=== PATIENT | female | born 1980 | race Caucasian/White ===

== ENCOUNTER 2016-09-09 14:55 | Emergency (ER) | payer OTHER ==
[~2016-09-09] VITALS: Ht 172.7 cm; Wt 124.3 kg
[~2016-09-09 14:55] MED LIST: BACTRIM,SEPT1 TABLET PO; CHANTIX1 MG PO; CIPRO500 MG PO; CLOTRIMAZOLE-BE15 GM TP; CYANOCOBAL1000 MCG/2 IM; DAILY VALUE1 EACH PO; DOCUSATE SODIU100 MG PO; FERROUS SULFAT324 M1 PO; KEFLEX500 MG PO; KLONOPIN1 MG PO; LOSARTAN POTAS100 MG PO; MS CONTIN,ORAMO60 MG PO; OXAYDO5 MG PO; OXYCODONE HCL15 MG PO; ROZEREM8 MG PO; SENNA LAX8.6 MG PO; SUMATRIPTAN SU100 MG PO; TAMSULOSIN HCL0.4 MG PO; VENLAFAXINE HC150 M1 PO
[2016-09-09 14:57] VITALS: BP 123/58
[2016-09-09 15:24] LABS: ADD MIUA? YES; BILIRUBIN NEGATIVE; BLOOD MODERATE; COLOR YELLOW ((YELLOW)); GLUCOSE (STRIP) NEGATIVE; KETONES 5; LEUKOCYTES SMALL; NITRITE NEGATIVE; PROTEIN (STRIP) 100; SPECIFIC GRAVITY 1.025 (1.000-1.030)
[2016-09-09 15:56] LABS: EPITHELIAL CELLS 2+ /HPF; MUCUS RARE /LPF; RED BLOOD CELLS 20-30 /HPF (0-5)
[2016-09-09 15:57] LABS: BACTERIA RARE /HPF; CALCIUM OXALATE CRYSTALS 3+ /HPF; CASTS NONE SEEN /LPF; CRYSTALS PRESENT; UCUL ADDED? NO
[2016-09-09 15:57] LABS: EOSINOPHIL (%) 0.3 % (0-5); HEMATOCRIT 49.5 % (36.0-46.0); IMMATURE GRANULOCYTE (%) 0.5 % (0.0-0.7); IMMATURE GRANULOCYTE COUNT 0.1 K/uL; LYMPHOCYTE COUNT 1.1 K/uL (1.0-2.8); MCH 27.9 PG (29.0-34.0); MCHC 31.5 G/DL (30.0-36.0); MCV 88.4 FL (83-99); MEAN PLAT.VOLUME 10.3 uM^3 (9.5-12.4); MONOCYTE (%) 4.8 % (3-12); MONOCYTE COUNT 0.6 K/uL (0-0.8); PLATELET COUNT 176 K/uL (156-360); RBC DIS.WIDTH-CV 15.4 % (11.8-14.6); RBC DIS.WIDTH-SD 49.5 % (39-53); WHITE BLOOD COUNT 11.8 K/uL (4.1-10.2)
[2016-09-09 16:16] LABS: CHLORIDE 104 mEq/L (99-109); POTASSIUM 4.3 mEq/L (3.7-5.4); SODIUM 142 mEq/L (136-147)
[2016-09-09 16:18] LABS: GLUCOSE 115 mg/dL (70-99)
[2016-09-09 16:19] LABS: ANION GAP 10 MEQ/L (2-14)
[2016-09-09 16:20] LABS: TOTAL BILIRUBIN 0.4 mg/dL (0.0-1.0)
[2016-09-09 16:21] LABS: ALKALINE PHOSPHATASE 104 IU/L (3-129); GFR ESTIMATE (CALCULATED) > 59 mL/min/
[2016-09-09 16:23] LABS: UREA NITROGEN (BUN) 13 mg/dL (9-23)
[2016-09-09 16:25] LABS: LIPASE 16 U/L (1.0-51.0)
== END 2016-09-09 17:20 | disposition left against medical advice (07) ==
LOC: EME → EDSEX 14:55 → RME 14:55 → EME 14:55 → EDBD 14:55 → RME 17:20
PROVIDERS: Physician Assistant
DX: R10.9 Unspecified abdominal pain (principal); Z87.442 Personal history of urinary calculi; M54.9 Dorsalgia, unspecified; R11.0 Nausea; Z90.49 Acquired absence of other specified parts of digestive tract; Z98.84 Bariatric surgery status; F17.200 Nicotine dependence, unspecified, uncomplicated
CPT/HCPCS: 80053; 81003; 83690; 85025; 99281; 99283; J1885

== ENCOUNTER → 2017-04-12 | Outpatient (CLI) | payer OTHER ==
[~2017-04-12] MED LIST changes: +COZAAR100 MG PO; +EFFEXOR XR150 MG PO; +ERGOCALCIF50000 UNIT PO; +IMITREX100 MG PO
== END | disposition home or self-care (01) ==
LOC: NUC 03-31 09:15
DX: E21.3 Hyperparathyroidism, unspecified (principal)
CPT/HCPCS: 78072; A9500; A9512